=== PATIENT | female | born 1980 | race Caucasian/White ===

== ENCOUNTER 2017-06-10 23:36 | Emergency (ER) | payer MEDICAID | END 2017-06-11 03:00 | disposition home or self-care (01) | LOC: D.ER 23:36 | DX: S46.912A Strain of unspecified muscle, fascia and tendon at shoulder and upper arm level, left arm, initial encounter (principal); X58.XXXA Exposure to other specified factors, initial encounter; Y93.89 Activity, other specified; Y92.89 Other specified places as the place of occurrence of the external cause ==

== ENCOUNTER 2019-09-13 13:12 | Emergency (ER) | payer MEDICAID ==
[2019-09-13 13:26] VITALS: Wt 84.1 kg
[2019-09-13 13:55] LABS: HCG URINE NEGATIVE (NEGATIVE)
[2019-09-13 14:07] LABS: BILIRUBIN NEGATIVE (NEGATIVE); GLUCOSE NEGATIVE (NEGATIVE); KETONE NEGATIVE (NEGATIVE); NITRITE NEGATIVE (NEGATIVE); UROBILINOGEN NORMAL (NORMAL)
[2019-09-13 14:08] LABS: BACTERIA FEW /hpf (NEGATIVE); EPITHELIAL CELLS OCC /hpf (0-5); RED CELLS - URINE 0-5 /hpf (0-5); WHITE CELLS - URINE RARE /hpf (NEGATIVE)
[2019-09-13 14:31] LABS: BASOPHILS 0.3 % (0-2); EOSINOPHILS 1.1 % (0-7); HEMATOCRIT 39.8 % (36.0-48.0); IMMATURE GRANULOCYTES 0.1 % (0-5); LYMPHOCYTES 30.3 % (15-50); MCHC 32.7 g/dL (31.0-37.0); MCV 91.9 fL (80.0-100.0); MEAN PLATELET VOLUME 9.9 fL (7.4-10.4); MONOCYTES 4.9 % (2-11); NEUTROPHILS 63.3 % (40-80); PLATELET COUNT 397 10x3/uL (130-400); RBC 4.33 10x6/uL (4.00-5.40); RDW 13.3 % (11.5-14.5); WBC 7.9 10x3/uL (4.8-10.8)
[2019-09-13 15:00] LABS: ANION GAP 11.8 mmol/L (8-16); CALCIUM 8.8 mg/dL (8.5-10.1); CARBON DIOXIDE 25.4 mmol/L (21.0-32.0); POTASSIUM - SERUM 4.2 mmol/L (3.5-5.1)
[2019-09-13 15:06] LABS: BILIRUBIN - TOTAL 0.2 mg/dL (0.2-1.3); PROTEIN - SERUM 7.9 g/dL (6.4-8.2)
[2019-09-13] MEDS ORDERED: TYLENOL W/CODEI1 TAB PO (15:59)
[2019-09-13 16:25] VITALS: BP 115/67
== END 2019-09-13 16:25 | disposition home or self-care (01) ==
LOC: D.ER 13:12
PROVIDERS: Family Medicine
DX: N93.8 Other specified abnormal uterine and vaginal bleeding (principal)

== ENCOUNTER 2019-09-20 08:00 | Outpatient (CLI) | payer MEDICAID ==
[~2019-09-20 08:00] MED LIST: TYLENOL W/CODEI1 TAB PO
[2019-09-24] MEDS ORDERED: MOBIC7.5 MG PO (10:39)
[2019-09-24] MEDS ORDERED: PROVERA10 MG PO (10:39)
== END 2019-09-20 23:59 | disposition home or self-care (01) ==
LOC: D.MAMMO 08:00
PROVIDERS: ATTEND Obstetrics & Gynecology
DX: N63.13 Unspecified lump in the right breast, lower outer quadrant (principal)

== ENCOUNTER 2019-09-26 05:18 | Day surgery (SDC) | payer MEDICAID ==
[2019-09-24 11:25] LABS: BASOPHILS 0.2 % (0-2); EOSINOPHILS 0.8 % (0-7); HEMATOCRIT 37.5 % (36.0-48.0); IMMATURE GRANULOCYTES 0.3 % (0-5); LYMPHOCYTES 16.2 % (15-50); MCH 29.5 pg (26.0-34.0); MCV 92.1 fL (80.0-100.0); MEAN PLATELET VOLUME 9.6 fL (7.4-10.4); MONOCYTES 5.3 % (2-11); NEUTROPHILS 77.2 % (40-80); PLATELET COUNT 401 10x3/uL (130-400); RBC 4.07 10x6/uL (4.00-5.40); RDW 13.3 % (11.5-14.5); WBC 14.2 10x3/uL (4.8-10.8)
[2019-09-24 11:38] LABS: ANION GAP 10.1 mmol/L (8-16); CALCIUM 8.9 mg/dL (8.5-10.1); CARBON DIOXIDE 28.5 mmol/L (21.0-32.0); CREATININE - SERUM 0.9 mg/dL (0.6-1.3); POTASSIUM - SERUM 4.6 mmol/L (3.5-5.1)
[2019-09-24 11:43] LABS: UDS - AMPHET POSITIVE QUAL (NEGATIVE); UDS - BARB NEGATIVE QUAL (NEGATIVE); UDS - BENZO POSITIVE QUAL (NEGATIVE); UDS - COCAINE NEGATIVE QUAL (NEGATIVE); UDS - OPIATE POSITIVE QUAL (NEGATIVE); UDS - PCP NEGATIVE QUAL (NEGATIVE); UDS - THC POSITIVE QUAL (NEGATIVE)
[2019-09-26] VITALS (14 sets, daily range): BP systolic 108–137; BP diastolic 52–82; Ht 320 cm; Wt 90.9 kg
[~2019-09-26] VITALS: Ht 320 cm; Wt 90.9 kg
--- NOTE | ~2019-09-26 | OP ---
PATIENT NAME: NORMA CHRISTIANSON MEDICAL RECORD: [id number] :80 LOCATION:D[facility] ADMISSION DATE: SURGEON: TAHIR MUSA MD DATE OF OPERATION: 09/26/2019 PREOPERATIVE DIAGNOSES: 1. Dysmenorrhea. 2. Abnormal uterine bleeding. 3. Pelvic pain. POSTOPERATIVE DIAGNOSES: 1. Dysmenorrhea. 2. Abnormal uterine bleeding. 3. Pelvic pain. 4. Adhesions. PROCEDURE PERFORMED: 1. Diagnostic laparoscopy. 2. Exploratory laparotomy. 3. Total abdominal hysterectomy. 4. Bilateral salpingo-oophorectomy. SURGEON: Tahir Musa MD POWER TONG OPERATOR: Dr. Collier ANESTHESIOLOGIST: Dr. Sosa. ANESTHESIA: General. FINDINGS: Adhesions of the omentum and uterus to the anterior wall of the abdomen. The bladder was adhesed to the uterus. Ovaries and tubes were unremarkable. SPECIMEN REMOVED: Uterus with cervix, bilateral tubes and ovaries. SPECIMEN DISPOSITION: Pathology. ESTIMATED BLOOD LOSS: 150 cc. FLUIDS: 1600 cc lactated Ringer's. URINE OUTPUT: 150 cc of clear urine. COMPLICATIONS: None. DRAIN: Serna to gravity. INDICATIONS: The patient is a 39-year-old female with a history of pelvic pain and dysfunctional uterine bleeding. The patient has been counseled and is requesting bilateral salpingo-oophorectomy for concerns of cancer and continued pain. The patient understands the risk of this and the need for hormone replacement therapy after the procedure was complete. The patient understood all risks and wishes to proceed. OPERATIVE REPORT [id number] NORMA CHRISTIANSON DESCRIPTION OF PROCEDURE: After informed consent was assured, the patient was taken to the operating room where anesthetic was obtained. The patient was then prepped and draped after placing a uterine manipulator. An incision was made at the umbilicus to accommodate a 5-mm trocar, which was inserted without difficulty. Through this trocar 5-mm camera was inserted and the pneumoperitoneum was developed. With the patient in Trendelenburg position, the camera immediately encountered adhesions and working around these adhesions, the uterus was visualized with dense adhesions from the fundus to the lower segment. The laparoscopic procedure was now abandoned and pneumoperitoneum was released. A Pfannenstiel incision was made and carried down to the underlying layer of the fascia. The fascia was opened in the midline and extended out laterally. The rectus bellies were dissected free superiorly and inferiorly and then . The peritoneum was entered sharply. Adhesions were encountered and these were taken down with Bovie cautery and sharply. Uterine fundus is identified. The uterus was brought to the opening that has been created and the adhesions of the uterus to the anterior wall and all taken down sharply. DESCRIPTION OF PROCEDURE: After the adhesions of the fundus and body had been taken down, the Kayode clamps were placed over the cornual regions bilaterally and the uterus was placed on gentle traction. Right round ligament was now fixed with a stitch and opened with Bovie cautery. A window was developed on the posterior leaf of the broad ligament and a clamp placed behind the ovary and tube. Another clamp was placed in front of this and at the pedicle was developed with Sy scissors. A tie on a pass with flashing of the pedicle and then a uenq-zoz-wod stitch was applied for hemostasis. Dissection continues on the anterior leaf of the broad ligament. The bladder adhesions were encountered and these were taken down sharply. Further dissection occurs of the vasculature of the right side, which is now doubly clamped, cut and stick-tied. Hemostasis has been achieved. Attention was now directed to the left side. The left round ligament was transfixed in similar fashion and the broad ligament incised. The posterior leaf has a window developed in it, two clamps were placed behind the ovary. The ovary is now removed. A free tie and then a hiug-dtb-wco stitch was applied here for hemostasis. Dissection continues of the vascular bundle of the left side. Attention was directed anteriorly and the bladder was now fully mobilized off the uterus. The uterine vasculature of the left side was clamped, cut and tied. The remaining portions of the cardinal ligament were serially clamped, cut and tied using both Kayode-Freeburn clamps and straight clamps. Once the level of the uterosacral ligaments were reached, the top of the vagina was cross-clamped with Kayode-Freeburn clamps. The uterus was removed with Duc scissors. Uterus was passed off the field with specimens of ovary and tubes as well. Cuff was now closed with interrupted [id number]-nq-[id number] stitches. After closure of the cuff, the pelvis was irrigated and irrigant removed. Simon is now placed over the cuff. The fascia is now closed with a running stitch and subcutaneous tissue was irrigated. Bleeding vessels cauterized and the skin closed. Sponge, lap, needle counts were correct times 2. A sterile dressing was applied. TRANSINT:[id number] Voice Confirmation ID: [id number] DOCUMENT ID: [id number] OPERATIVE REPORT [id number] NORMA CHRISTIANSON JOSEPH E MD CC: [id number] DICTATION DATE: 10/03/19 183 INSPECTOR AND UNLOADER: 10/04/19 0345 [facility] 09/28/19 [place] [id number] [place] [id number]
[~2019-09-26 05:18] MED LIST changes: +MOBIC7.5 MG PO; +PROVERA10 MG PO
[2019-09-26 06:41] LABS: HCG URINE NEGATIVE (NEGATIVE)
--- NOTE | 2019-09-26 10:23 | NUR ---
PT RECEIVED TO ROOM 1274 VIA BED FROM PACU. PT DROWSY BUT ORIENTED, RATING PAIN 10/10 AT ABD INCISION. IV INFUSING ORDERED TO LEFT HAND PIV, SITE C/D/I. ABD INCISIONS AT UMBILICUS AND LOW TRANSVERSE ARE C/D WITH DERMABOND INTACT. ICE PACK REPLACED OVER LT ABD INCISION. VAGINAL PACKING IN PLACE, TAIL OF GAUZE PACKING NOTED TO BE C/D. PERIPAD PLACED TO MONITOR FOR VAGINAL BLEEDING THROUGH PACKING. GONCALVES CATH DRAINING CLEAR YELLOW URINE TO BEDSIDE DRAINAGE, 25ML NOTED IN UROMETER. SCD'S ON LE BILAT AND ON PUMP. WILL PROCEED WITH MANAGER COLLEGE SETUP ORDERED FOR PAIN MANAGEMENT.
--- NOTE | 2019-09-26 10:34 | NUR ---
MORPHINE COMBINE DRIVER SET UP ORDERED, SEE EMAR FOR DOC. PT ADMIN 2MG BOLUS DOSE ORDERED PRN IN COMBINE DRIVER ORDER. PT INSTRUCTED ON COMBINE DRIVER USE WELL MOTHER AT BEDSIDE, THAT ONLY PT CAN PRESS COMBINE DRIVER BUTTON. UNDERSTANDING VERBALIZED.
--- NOTE | 2019-09-26 10:42 | NUR ---
PT C/O NAUSEA AFTER INITIATING MORPHINE HOT TOP LINER HELPER. ZOFRAN ADMIN ORDERED, SEE EMAR FOR DOC. EMESIS BAG GIVEN AND COOL CLOTH TO FACE. WILL REASSESS.
--- NOTE | 2019-09-26 10:50 | NUR ---
PT OXYGEN SATURATION NOTED TO BE DECREASING AFTER MORPHINE DOSE, PT FREQUENTLY DROWSY AND HAVING TO BE WOKEN TO TAKE DEEP BREATHS. 2L OXYGEN PLACED ON PT VIA NASAL CANNULA. WILL CONT TO MONITOR.
--- NOTE | 2019-09-26 12:05 | NUR ---
THIS RN TO ROOM FOR PT CHECK. PT STATES NAUSEA IS BETTER BUT SHE IS HURTING, STATES SHE THINKS SHE CAN TAKE NEURONTIN NOW. THIS RN TO ROOM WITH NEURONTIN, PT THEN STATES SHE GOT NAUSEATED WITH SIP OF WATER, STATES SHE DOES NOT WANT TO TAKE PO NEURONTIN NOW, AFRAID SHE WILL VOMIT. CAPSULE HELD. PT TURNED TO RIGHT TILT PER REQUEST WITH ASSIST FROM NAZANIN PIMENTEL. INCISION AND PERIPAD CHECKED, NO CHANGES NOTED. 70ML CLEAR YELLOW URINE EMPTIED FROM UROMETER. WILL NOTIFY DR MUSA OF PT'S PAIN COMPLAINTS.
--- NOTE | 2019-09-26 12:30 | NUR ---
DR MUSA PHONED TWICE WITH NO ANSWER. WILL RETRY.
--- NOTE | 2019-09-26 12:48 | NUR ---
DR MUSA GIVEN REPORT ON PT'S PAIN AND NAUSEA COMPLAINTS. ORDER RECEIVED FOR 2MG DILAUDID Q4H PRN BREAKTHROUGH PAIN, AND NORMALIZE BY 0400 TOMORROW MORNING.
--- NOTE | 2019-09-26 15:48 | NUR ---
THIS RN TO ROOM FOR PT CHECK. PT STATES SHE GOT UP AND STOOD AT BEDSIDE, REQUESTING SPRITE, REPORTS BETTER NAUSEA WITH PHENERGAN. DR MUSA PHONED WITH REPORT. ORDER RECEIVED TO NORMALIZE PT NOW. D/C GONCALVES, REMOVE VAGINAL PACKING, D/C FOUNDRY ENGINEER AND IV FLUIDS, SALINE LOCK IV, REGULAR DIET, MAY AMBULATE. 4MG DILAUDID PO Q4HPRN MOD TO SEVERE PAIN. WILL UPDATE PT ON POC.
--- NOTE | 2019-09-26 16:00 | NUR ---
GONCALVES CATH D/C, APPROX 200ML NOTED IN UROMETER. FIELD INSTRUCTOR D/C'D AND IV SALINE LOCKED. VAG PACKING REMOVED, NOTED TO HAVE SCANT SPOTTING OF BRIGHT RED BLOOD ON PACKING GAUZE. PERIPAD PLACED TO PERINEUM TO MONITOR. SCD'S REMOVED BY PT. PT SIPPING SPRITE AND EATING CRACKERS.
--- NOTE | 2019-09-26 16:37 | NUR ---
PT ADMIN SCHED MED WELL PRN PAIN MED PER ORDER, SEE EMAR FOR DOC.
--- NOTE | 2019-09-26 16:48 | NUR ---
PT UP TO VOID WITHOUT ASSIST, AMBULATES WITH STEADY GAIT, DENIES FEELING DIZZY. VOIDS 200ML CLEAR YELLOW URINE IN CONTAINER. PERICARE PER PT, PADS AND PANTIES PLACED ON PT. WILL TRANSFER TO .. FOR CARE.
--- NOTE | 2019-09-26 16:50 | NUR ---
PT TRANSFERRED TO [facility] ROOM 1220 FOR CARE. REPORT TO NAZANIN CAROLINA.
--- NOTE | 2019-09-26 17:49 | NUR ---
PT RESTING ON HER LEFT SIDE WITH EYES CLOSED AND RESP EVEN. NO SIGNS OF DISTESS NOTED. LEFT UNDISTURBED WITH SIDE RAILS UP X 2 AND CALL LIGHT IN REACH.
--- NOTE | 2019-09-26 19:00 | NUR ---
REPORT GIVEN BY NAZANIN BAZZI AND NAZANIN CARREON
--- NOTE | 2019-09-26 20:00 | NUR ---
PT ASSESSMENT COMPLETED. PT HAS AN INCISION IN HER LOWER ABD WHERE A WAS. THE INCISION IS GLUED. THERE IS NO DRAINAGE NOTED TO THE PAD COVERING HER PT INCISION. PT IS VOIDING WELL. PT GETS OUT OF BED WITH NO ASSISTANCE ALTHOUGH SHE HAS BEEN INSTRUCTED TO CALL FOR HELP. MATTER OF FACT PT DOES WHAT EVER SHE WANTS TO DO WHEN SHE'S OUT OF BED LIKE PICKING THINGS UP OFF THE FLOOR AND OTHER THINGS SHE SHOULD NOT BE DOING ACTIVITY IBRAHIM AFTER HER SURGERY. SHE WAS INSTRUCTED TO GET IN BED AND REST, CALL FOR ASSISTANCE WHEN NEEDED. HER SISTER IS NOW IN THE ROOM WHO BROUGHT FOOD, DRINKS, ETC. SHE IS DRINKING DR. FRAGA AND I EXPLAINED THAT THIS COULD GIVE HER GAS AND SHE STATED SHE DID NOT CARE. HEART SOUNDS ARE NORMAL, LUNGS SOUND CLEAR, AND THIS NURSE DID NOT HEAR ANY BOWEL SOUNDS.
--- NOTE | 2019-09-26 20:28 | NUR ---
PT IS REQUESTING PAIN MEDS RATING HER PAIN AT 10. SHE IS SITTING UP IN BED WITH HER LEGS CROSSED, HEAD IN HER HANDS. SHE WAS GIVE 4 MG OF DILAUDID PO PER ORDERS. SHE DID NOT C/O OF ANY N/V.
--- NOTE | 2019-09-26 20:50 | NUR ---
I MOVED A CHAIR IN THE PT ROOM FOR HER SISTER TO SIT IN. I MENTIONED TO THE SISTER THAT WE MAY HAVE TO MOVE THE BED OVER A LITTLE AND THE SIDE TABLE. PT IMMEDIATELY JUMPED OUT OF BED MOVING THE SMALL TABLE AND THEN TRYING TO MOVE THE BED. I SPOKE STERNLY TO THE PT TO GET IN BED AND NOT TO BE TRYING TO MOVE THINGS. SHE SAID...WELL YOU SAID... AND I BUT IN TO SAY THAT I SAID THAT HER HER SISTER AND NOT TO HER. THIS PT DOES NOT FOLLOW DIRECTIONS VERY WELL.
--- NOTE | 2019-09-26 22:20 | NUR ---
PT WAS GIVEN PO TORADOL. SHE STATED HER PAIN IS STILL A 10. SHE HAS BEEN UP AND ABOUT IN HER ROOM AND NOT RESTING IN BED INSTRUCTED. I ASKED HER SISTER TO PLEASE TRY TO KEEP HER IN BED. SHE SAID THAT SHE'S TRIED BUT PT GETS UP ANYWAY. PT STATES SHE IS VERY INDEPENDENT AND LIKES TO DO FOR HERSELF. I TOLD HER THAT THIS WAS THE TIME TO TAKE ALL THE HELP SHE COULD DUE TO HER HAVING A MAJOR SURGERY. I EXPLAINED THAT SHE MAY HARM HERSELF IF SHE DIDN'T REST. SHE GOT IN BED AND SAID SHE WOULD STAY.
--- NOTE | 2019-09-26 22:39 | NUR ---
PT GIVEN 10 MG OF AMBIEN PO PER REQUEST OF PT. SHE HAS BEEN IN BED.
--- NOTE | 2019-09-26 22:42 | NUR ---
PT GIVEN AMBIEN FOR SLEEP. WHEN OPENING ONE OF THE FIVE MG TABLETS IT BROKE IN HALF. I GAVE THE PT THIS MED. I WENT TO THE [facility]IXIS AND TOOK OUT ANOTHER 10 MG TO GIVE THE PT WHAT SHE DID NOT RECEIVE. WHEN TRYING TO WASTE, IT WAS ACCIDENTALLY DONE TWICE. I SAVED THE 5 MG PILL IN THE UNOPENED PACKAGE AND PLACED THE TWO HALVES IN THE MEDICATION HOLDERS THEY CAME IN ORIGINALLY AND PUT IN A PLASTIC BAG AND LOCKED UP TO GIVE TO PHARMACY WHEN THEY GET HERE TOMORROW MORNING.
--- NOTE | 2019-09-26 22:45 | NUR ---
PT CALLED ME IN HER ROOM ASKING FOR MORE ICE FOR HER DR. FRAGA AND SOME SHERBUT OF ICE CREAM. SHERBUT AND ICE TAKEN TO PT. SHE IS WRITING IN HER DIARY NOW. PT ALSO ASKED WHEN SHE COULD GET MORE PAIN MEDS. I LET HER KNOW THAT WHEN THAT TIME WAS. SHE STATES SHE HURTS SO BAD BECAUSE SHE'D BEEN UP, PICKING UP THINGS, ETC. I EXPLAINED THAT WAS WHY I'D BEEN BEGGING HER TO GET BACK IN BED. SHE IS STILL SITTING UP WITH HER LEGS CROSSED.
--- NOTE | 2019-09-27 00:03 | NUR ---
PT IS RESTING QUIETLY AT THIS TIME.
[2019-09-27 00:35] VITALS: BP 105/55
--- NOTE | 2019-09-27 00:39 | NUR ---
PT REQUEST PAIN MEDS. SHE RATES HER PAIN A 9. SHE WAS DOZING WHEN I WENT IN TO TAKE VS. I TOLD HER WHEN HER NEXT DOSE IS DUE SINCE SHE ASKED.
--- NOTE | 2019-09-27 01:15 | NUR ---
PT IS SLEEPING. PT TURNS SELF WELL TO BOTH SIDES AND BACK.
--- NOTE | 2019-09-27 02:05 | NUR ---
PT WAS GIVEN AN ICE PACK TO PLACE ON HER INCISION. SHE WAS ALSO GIVEN AN EXTRA PILLOW TO SLPINT HER INCISION WHEN GETTING UP AND DOWN AND TURNING. SHE ASKED WHEN SHE COULD START DRIVING AGAIN. I TOLD HER WHAT EVER HER DOCTOR TOLD HER TO DO. I TOLD HER MAYBE 6 WEEKS. TO THAT SHE STATED THAT SHE HAD THINGS TO DO AND LOOK FOR A JOB AND SHE'D BE DRIVING BEFORE THAT. I ENCOURAGED HER TO ASK HER DRMarcy AND TO FOLLOW HIS INSTRUCTIONS.I EXPLANED TO HER AGAIN THAT SHE HAD MAJOR SURGERY AND SHE WAS GOING TO HAVE TO REST AND BE VERY CAREFUL OF HER ACTIVITIES AND ASK HOW MUCH SHE COULD LIFT. SHE IS VERY IMPULSIVE AT TIMES. SHE WILL BE LIVING WITH HER SISTER WHO IS INTERESTED IN PT DOING THE RIGHT THINGS TO GET BETTER.
[2019-09-27 04:00] VITALS: BP 98/42
--- NOTE | 2019-09-27 04:00 | NUR ---
PT HAS NOT SLEPT MUCH TONIGHT. SHE WAS STREAMING A TV SHOW ON HER TELEPHONE WHEN I WENT IN TO TAKE HER VITAL SIGNS. SHE RATES HER PAIN A 10/10. I GAVE HER THE SCHEDULED TORADOL SHE HAS ORDERED. SHE CONT. TO TURN FROM SIDE TO SIDE WELL. SHE REQUESTED A NEW ICE PACK AND A SPRITE, WHICH WERE BOTH DELIVERED. SHE KNOWS ITS ALMOST TIME FOR HER PAIN MEDS SO SHE'S STAYING AWAKE. SHE HAS BEEN ENCOURAGED TO STAY IN BED AND REST FOR THE REST OF THE NIGHT. SHE GETS UP ALONE WHEN GOING TO THE IN SPITE OF BEING ASKED TO CALL FOR HELP. SHE IS ABOUT TO CRAWL OUT OF HER SKIN SHE WANTS TO GO OUT AND SMOKE SO BADLY. SHE REALLY ISN'T INTERESTED IN THE PATCH RIGHT NOW BECAUSE SHE JUST WANTS TO SMOKE. SHE ASKED IF SHE COULD SMOKE WITH THE PATCH AND I TOLD HER NO. SHE STATES THAT SHE IS SPOTTING SOME ON HER PAD. I TOLD HER THIS WAS TO BE EXPECTED.
[2019-09-27 04:24] LABS: BASOPHILS 0 % (0-2); EOSINOPHILS 0 % (0-7); HEMATOCRIT 31.8 % (36.0-48.0); HEMOGLOBIN 10.1 g/dL (12-16); IMMATURE GRANULOCYTES 0.3 % (0-5); LYMPHOCYTES 7.7 % (15-50); MCH 29.4 pg (26.0-34.0); MCHC 31.8 g/dL (31.0-37.0); MCV 92.4 fL (80.0-100.0); MEAN PLATELET VOLUME 10.1 fL (7.4-10.4); MONOCYTES 7.2 % (2-11); NEUTROPHILS 84.8 % (40-80); PLATELET COUNT 355 10x3/uL (130-400); RBC 3.44 10x6/uL (4.00-5.40); RDW 13.2 % (11.5-14.5); WBC 18.4 10x3/uL (4.8-10.8)
--- NOTE | 2019-09-27 04:30 | NUR ---
PT HAS HAD HER DILAUDID 4 MG PO. SHE STATES HER PAIN IS STILL A 10/10. SHE HAS BEEN UP WALKING IN HER ROOM AND GOING TO THE BR. SHE REQUESTED GRAM CRACKERS AND PACKAGES WERE TAKEN TO HER. SHE IS NOW BACK IN BED. SHE STATES HER SPOTTING NOW IS JUST ON THE TOILET PAPER.
[2019-09-27 04:47] LABS: ANION GAP 11.8 mmol/L (8-16); CALCIUM 8.5 mg/dL (8.5-10.1); CARBON DIOXIDE 27.2 mmol/L (21.0-32.0)
--- NOTE | 2019-09-27 06:15 | NUR ---
LORENA FROM PHARMACY CAME TO UNIT TO MULTIMEDIA EDITOR THE PACKAGE OF MEDICATION( AMBIEN) TO TAKE TO PHARMACY.
--- NOTE | 2019-09-27 06:30 | NUR ---
PT IS RESTING QUIETLY WITH EYES CLOSED. RESPIRATIONS EQUAL AND UNLABORED. PT ON RIGHT SIDE.
--- NOTE | 2019-09-27 08:12 | NUR ---
ROUNDS COMPLETED BY DR MUSA, PT QUESTIONS MD ABOUT DISCHARGE, AMBULATING OFF UNIT AND PAIN MED AT TIME OF DISCHARGE. PT SEEMS OK WITH ANSWERS SHE IS GIVEN AND STATES HER UNDERSTANDING THAT PAIN MED AT DISCHARGE WILL BE SAME SHE IS TAKING NOW, WOULD REEVALUATE THIS AFTERNOON FOR POSSIBLE D/C LATER TODAY AND MD DISCOURAGED HER FROM GOING OUTSIDE BUT OK FOR HER WALK OFF THIS UNIT. ALSO ADVISES THAT PT NOT BE GIVEN PAIN MED IF SHE PLANS TO WALK OFF UNIT BUT TO WAIT UNTIL SHE RETURNS TO HER ROOM.
--- NOTE | 2019-09-27 08:20 | NUR ---
AM ASSESSMENT CHARTED TO FLOWSHEET. SALINE LOCK FROM LEFT FOREARM REMOVED WITH CATH INTACT. BIKINI INCISION HAS DERMA LOPEZ IN PLACE AND IS CLEAN AND DRY. ABDOMEN SOFT TO TOUCH. ALTHOUGH STEADY GAIT IS NOTED WHILE SHE MOVES AROUND HER ROOM A WHEELCHAIR IS PROVIDED FOR HER TO LEAVE UNIT.
--- NOTE | 2019-09-27 08:28 | NUR ---
OFF UNIT BY WHEELCHAIR WITH HER SISTER. -
--- NOTE | 2019-09-27 09:10 | NUR ---
PT RETURNS TO HER ROOM, RATES PAIN AT 10/10 AND REQUEST PAIN MED.
--- NOTE | 2019-09-27 09:14 | NUR ---
PAIN MEDS GIVEN SCANNED TO EMAR. SHE CONTINUE TO RATE PAIN AT INCISION SITE AT 10/10. ENCOURAGE HER TO REST IF POSSIBLE. SIDE RAILS UP X 2, CALL LIGHT IN REACH AND PT SISTER AT BEDSIDE.
--- NOTE | 2019-09-27 09:59 | NUR ---
PAIN REASSESSMENT AT THIS TIME SHE RATES PAIN AT 4/10 AND IS RESTING ON HER RIGHT SIDE WHILE WATCHING TV.
--- NOTE | 2019-09-27 10:30 | NUR ---
PT OFF UNIT BY WHEELCHAIR WITH HER SISTER.
--- NOTE | 2019-09-27 10:44 | NUR ---
BACK TO ROOM, RATES PAIN AT4/10. PER PT SHE IS GOING TO TRY AND REST, SISTER WILL BE LEAVING AT THIS TIME BUT WHEN SHE RETURNS PT STATES SHE WOULD LIKE TO SHOWER, REASSURED HER THAT WOULD BE GOOD. CALL LIGHT IS WITHIN HER REACH.
--- NOTE | 2019-09-27 11:25 | NUR ---
PT RESTING ON LEFT SIDE WITH EYES CLOSED AND RESP EVEN, NO SIGNS OF DISTRESS NOTED, LEFT UNDISTURBED AT THIS TIME. SIDE RAILS REMAIN UP X 2 AND CALL LIGHT WITH IN REACH.
--- NOTE | 2019-09-27 14:00 | NUR ---
PT OFF UNIT BY WHEELCHAIR WITH FAMILY MEMBER.
--- NOTE | 2019-09-27 14:40 | NUR ---
PT AND FAMILY MEMBER RETURN TO ROOM.
--- NOTE | 2019-09-27 15:47 | NUR ---
DILAUDID 4MG GIVEN FOR COMPLAINT OF PAIN THAT SHE RATES AT 10/10. NO OTHER NEEDS AT THIS TIME.
--- NOTE | 2019-09-27 16:50 | NUR ---
pt off unit by wheelchair with family member.
--- NOTE | 2019-09-27 17:19 | NUR ---
BACK TO ROOM BY WHEELCHAIR, REGULAR DIET PER DIETARY. PT DENIES NEEDS FOR NURSE AT THIS TIME
--- NOTE | 2019-09-27 18:00 | NUR ---
PT OFF UNIT AT THIS TIME.
--- NOTE | 2019-09-27 18:40 | NUR ---
RETURNS TO UNIT WITH FAMILY MEMBER AT HER SIDE.
--- NOTE | 2019-09-27 19:00 | NUR ---
PT REPORT GIVEN BY JLUIS ESTRELLA RN
--- NOTE | 2019-09-27 20:00 | NUR ---
PT IS IN ROOM WITH HER SISTER. PT IS ASKING WHEN SHE CAN HAVE MORE PAIN MEDS. I TOLD HER IT WOULD BE AROUND 2330. SHE SAYS SHE IS REALLY HURTING BUT I EXPLAINED THAT THERE WAS NO MEDS TO GIVE FOR A WHILE. SHE SAID OK. SHE SAYS SHE IS GOING TO TAKE A SHOWER SOMETIME.
[2019-09-27 22:00] VITALS: BP 104/55
--- NOTE | 2019-09-27 22:00 | NUR ---
PT WANTS TO GO OUT TO SMOKE. I TOLD HER SHE COULD GO OUT NOW AND THAT IT WOULD BE IN THE MORNING BEFORE SHE COULD GO AGAIN. SHE SAID AGAIN THAT SHE WOULD TAKE A SHOWER WHEN SHE GOT BACK. SHE IS NOT C/O PAIN AT THIS TIME. SHE IS REALLY READY TO GO SMOKE RIGHT NOW. SHE WAS UNHAPPY WITH ME B/C I TOLD HER THIS WAS THE LAST TIME FOR THE DAY.
--- NOTE | 2019-09-27 22:30 | NUR ---
PT AND HER SISTER ARE BACK IN PT ROOM WHEN I ASK THEM TO BE BACK.
--- NOTE | 2019-09-27 23:15 | NUR ---
PT HAS HAD A SHOWER NOW. SHE IS BACK IN BED.
--- NOTE | 2019-09-28 | NUR ---
PT CALLED ME TO HER ROOM TO LET ME KNOW SHE WAS READY FOR ANY MEDS THAT SHE COULD HAVE NOW. TORADOL WAS GIVEN PO.
--- NOTE | 2019-09-28 00:15 | NUR ---
AT THIS TIME PT HAS HAD PO DILAUDID, PO TORADOL, AND 10 MG OF AMBIEN. SHE IS GOINF TO SLEEP NOW.
--- NOTE | 2019-09-28 01:20 | NUR ---
WAKED PT. TO GIVE NEURONTIN PO. SHE IMMEDIATELY POPPED UP WANTING SOMETHING SWEET. SHE ASKED FOR SNACK CAKES. SHE SETTELED FOR PAVEL CRACKERS. I TOLD HER SHE NEEDED TO GO BACK TO SLEEP.
--- NOTE | 2019-09-28 02:20 | NUR ---
PT IS RESTING WIHT HER EYES CLOSED, RESPIRATIONS EVEN AND UNLABORED. NO C/O OR NEEDS AT THIS TIME
--- NOTE | 2019-09-28 04:00 | NUR ---
PT APPEARS TO BE SLEEPING. PT STATED THAT IF SHE WAS SLEEPING TO NOT WAKE HER UP SO SHE CAN REST.
--- NOTE | 2019-09-28 06:00 | NUR ---
PT WAS WAKED UP TO GIVE TORADOL. SHE TURNED OVER LIKE SHE MAY BE GOING BACK TO SLEEP.
--- NOTE | 2019-09-28 08:00 | NUR ---
PT RESTING QUIETLY IN BED, ASSESSMENT COMPLETE. ABDOMEN SOFT BS+ PT STATES IS PASSING FLATUS AND VOIDING WITHOUT DIFFICULTY. DENIES ANY VAG. BLEEDING. PT STATES IS READY TO GO HOME.
[2019-09-28 08:15] VITALS: BP 116/51
[2019-09-28] MEDS ORDERED: DILAUDID2 MG PO (11:33)
[2019-09-28] MEDS ORDERED: NEURONTIN 300300 MG PO (11:33)
[2019-09-28] MEDS ORDERED: MOBIC7.5 MG PO (11:34)
--- NOTE | 2019-09-28 11:48 | NUR ---
PRESCRIPTIONS HANDED TO PT FOR DILAUDID,NEUROTIN,AND MOBIC. DISCHARGE INSTRUCTIONS SHEETS GIVEN AND REVIEWED. PT VOICED UNDERSTANDING. PT ALREADY DRESSED AND LEFT FLOOR PER WC ESCORTED OUT PER MYSELF TO HER SISTER WAITING IN CAR.
== END 2019-09-28 11:48 | disposition home or self-care (01) ==
LOC: D.OPS 05:18 → D.WS 05:18 → D.OPS 07:00 → D.PAN 07:00 → D.LD 09:29 → D.WS 16:52 → D.OPS 09-28 11:48
PROVIDERS: ATTEND Obstetrics & Gynecology
DX: N94.6 Dysmenorrhea, unspecified (principal); R10.2 Pelvic and perineal pain; N93.9 Abnormal uterine and vaginal bleeding, unspecified; J45.909 Unspecified asthma, uncomplicated

== ENCOUNTER 2019-10-08 15:45 | Emergency (ER) | payer MEDICAID ==
[~2019-10-08] VITALS: Ht 320 cm; Wt 90.9 kg
[~2019-10-08 15:45] MED LIST changes: +DILAUDID2 MG PO; +NEURONTIN 300300 MG PO
[2019-10-08 16:23] VITALS: Ht 320 cm; Wt 90.9 kg
[2019-10-08 16:59] LABS: HEMATOCRIT 35.1 % (36.0-48.0); LYMPHOCYTES 15.6 % (15-50); MCH 28.9 pg (26.0-34.0); MCHC 31.3 g/dL (31.0-37.0); MCV 92.4 fL (80.0-100.0); MEAN PLATELET VOLUME 8.7 fL (7.4-10.4); NEUTROPHILS 78.5 % (40-80); PLATELET COUNT 493 10x3/uL (130-400); RDW 12.5 % (11.5-14.5); WBC 12.9 10x3/uL (4.8-10.8)
[2019-10-08 17:12] LABS: CALC OSMOLALITY 276 mosm/kg (275-300); CALCIUM 8.5 mg/dL (8.5-10.1); CARBON DIOXIDE 29.7 mmol/L (21.0-32.0); CHLORIDE - SERUM 104 mmol/L (98-107); CREATININE - SERUM 1.1 mg/dL (0.6-1.3); GLUCOSE 128 mg/dL (74-106); POTASSIUM - SERUM 4.3 mmol/L (3.5-5.1); SODIUM 138 mmol/L (136-145); UREA NITROGEN 9 mg/dL (7-18); eGFR NON AFRICAN AMERICAN 59 mL/min (90-120)
[2019-10-08 17:23] LABS: ALBUMIN 3.1 g/dL (3.4-5.0); ALKALINE PHOSPHATASE 64 U/L (30-120); ALT (SGPT) 19 U/L (10-68); AMYLASE - SERUM 40 U/L (25-115); BILIRUBIN - TOTAL 0.24 mg/dL (0.2-1.3); LIPASE 109 U/L (73-393); PROTEIN - SERUM 7.2 g/dL (6.4-8.2)
[2019-10-08 17:26] LABS: TROPONIN-I < 0.017 ng/mL (0.000-0.060)
[2019-10-08 19:31] LABS: BILIRUBIN NEGATIVE (NEGATIVE); GLUCOSE NEGATIVE (NEGATIVE); KETONE NEGATIVE (NEGATIVE); NITRITE NEGATIVE (NEGATIVE); UROBILINOGEN NORMAL (NORMAL)
[2019-10-08] MEDS ORDERED: BACTRIM DS TAB1 EAC1 PO (20:11)
[2019-10-08] MEDS ORDERED: MIRALAX17 GM PO (20:12)
[2019-10-08 20:28] VITALS: BP 110/74
== END 2019-10-08 20:28 | disposition home or self-care (01) ==
LOC: D.ER 15:45
DX: K59.00 Constipation, unspecified (principal); L03.311 Cellulitis of abdominal wall